=== PATIENT | female | born 1985 | race Caucasian/White ===

== ENCOUNTER → 2017-03-18 | Outpatient (CLI) | payer MEDICAID ==
[~2017-03-18] MED LIST: ABILIFY10 MG; ACYCLOVIR 400M400 MG PO; ALPRAZOLAM0.5 MG PO; BISOPROLOL 5MG T5 MG PO; CEPHALEXIN500 MG PO; DIVALPROEX SOD500 M2 PO; FLUOXETINE20 M2 PO; HYDROCODONE-APA1 TA1 PO; IBUPROFEN400 MG PO; LORTAB 5/500 501 TAB PO; MACROBID 100MG100 MG PO; NAPROSYN 375MG375 MG PO; OMEPRAZOLE D/R20 MG PO; OMEPRAZOLE20 MG PO; PERCOCET 5/3251 EACH PO; PRENATAL PLUS1 TA1 PO; PRILOSEC10 MG; PROZAC 20MG CAP20 MG PO; SEROQUEL100 MG PO; SPRINTEC 35 MCG1 TAB; VICODIN 5/500 T1 TAB PO; VISTARIL25 MG PO; VOLTAREN75 MG PO
[2017-03-18 15:41] LABS: AMPHETAMINES/METAMPHETAMINES NEGATIVE ng/mL (<1000)
== END ==
LOC: LAB 13:18
PROVIDERS: Emergency Medicine
DX: Z79.899 Other long term (current) drug therapy (principal)

== ENCOUNTER → 2017-06-16 | Outpatient (CLI) | payer MEDICAID ==
[2017-06-16 13:35] LABS: AMPHETAMINES/METAMPHETAMINES NEGATIVE ng/mL (<1000)
== END ==
LOC: LAB 12:30
PROVIDERS: Emergency Medicine
DX: Z79.899 Other long term (current) drug therapy (principal)